=== PATIENT | female | born 1995 | race Two or more races ===

== ENCOUNTER 2024-10-12 09:28 | Inpatient (IN) | payer OTHER ==
[2024-10-12 10:01] VITALS: BMI 25.6
[2024-10-12] MEDS ORDERED: DICYCLOMINE HCL 10 MG CAPSULE PO PRN (12:15)
[2024-10-12] MEDS ORDERED: LOPERAMIDE HCL 2 MG CAPSULE PO PRN (12:15)
[2024-10-12] MEDS ORDERED: BISMUTH SUBSALICYLATE 262 MG/15 ML BTL PO PRN (12:15)
[2024-10-12] MEDS ORDERED: ONDANSETRON *ODT* 4 MG TABLET SL PRN (12:15)
[2024-10-12] MEDS ORDERED: IBUPROFEN 400 MG TABLET (FP) PO PRN (12:15)
[2024-10-12] MEDS ORDERED: MAG HYDROX/AL HYDROX/SIMETH 30 ML UNIT-DOSE CUP PO PRN (12:15)
[2024-10-12] MEDS ORDERED: guaiFENesin 600 MG TABLET.ER (FP) PO PRN (12:15)
[2024-10-12] MEDS ORDERED: IBUPROFEN 600 MG TABLET (FP) PO PRN (12:15)
[2024-10-12] MEDS ORDERED: MAGNESIUM HYDROX 2400MG/30ML ORAL SUSPENSION 30 ML CUP PO PRN (12:15)
[2024-10-12] MEDS ORDERED: ACETAMINOPHEN 325 MG TABLET (FP) PO PRN (12:15)
[2024-10-12] MEDS ORDERED: BENZOCAINE/MENTHOL (CHLORASEPTIC ) LOZENGE MM PRN (12:15)
[2024-10-12] MEDS ORDERED: NALOXONE (NARCAN) HCL 4 MG/0.1 ML SPRAY NS PRN (12:15)
[2024-10-12] MEDS ORDERED: POLYETHYLENE GLYCOL (HEALTHYLAX) 3350 17 GM PACKET PO PRN (12:15)
[2024-10-12] MEDS ORDERED: BENZONATATE 200 MG CAPSULE PO PRN (12:15)
[2024-10-12] MEDS: methaDONE HCL 10 MG TABLET (FOR DETOX USE ONLY) PO ONE (16:14)
[2024-10-12] MEDS: cloNIDine HCL 0.1 MG TABLET PO SCH (18:06)
[2024-10-12] MEDS: hydrOXYzine PAMOATE 25 MG CAPSULE (FP) PO PRN (18:07)
[2024-10-12] MEDS: NICOTINE POLACRILEX 2 MG GUM BUC PRN (18:08)
[2024-10-12] MEDS: MELATONIN 5 MG TABLETS PO SCH (22:46)
[2024-10-12] MEDS: THIAMINE 100 MG TABLET PO SCH (22:46)
[2024-10-12] MEDS: QUEtiapine FUMARATE 50 MG TABLET PO SCH (22:46)
[2024-10-12] MEDS: BUPRENORPHINE/NALOXONE 0.5 MG/0.125 MG FILM SL ONE (22:47)
[2024-10-12] MEDS: LITHIUM CARBONATE 300 MG CAPSULE PO SCH (22:47)
[2024-10-13] MEDS: SERTRALINE HCL 25 MG TABLET (FP) PO SCH (09:39)
[2024-10-13] MEDS: FOLIC ACID 1 MG TABLET (FP) PO SCH (09:39)
[2024-10-13] MEDS: PRENATAL VITAMINS W/ FOLIC ACID TABLET (FP) PO SCH (09:39)
[2024-10-13] MEDS: NICOTINE 21 MG/24 HOURS TOPICAL PATCH TD SCH (09:40)
[2024-10-13] MEDS: BUPRENORPHINE/NALOXONE 0.5 MG/0.125 MG FILM SL SCH (09:43)
[2024-10-13 11:13] LABS: HEMATOCRIT 36.3 % (32.4-45.2); MCH 31.1 pg (25.7-33.7); MCHC 33.1 g/dl (32.0-36.0); MEAN CELL VOLUME 93.8 fl (80-96); PLATELET COUNT 255 10^3/uL (134-434); RBC 3.87 M/mm3 (3.60-5.2); RDW 12.8 % (11.6-15.6); WHITE BLOOD COUNT 6.4 K/mm3 (4.0-10.0)
[2024-10-13 11:21] LABS: CHLORIDE 109 mmol/L (98-107); POTASSIUM 4.5 mmol/L (3.5-5.1); SODIUM 140 mmol/L (136-145)
[2024-10-13 11:32] LABS: ALBUMIN 3.2 g/dl (3.4-5.0); ANION GAP 5 mmol/L (4-13); CALCIUM 9.2 mg/dL (8.5-10.1); CO2 25 mmol/L (21-32); GLUCOSE,RANDOM 79 mg/dL (74-106)
[2024-10-13 11:33] LABS: BLOOD UREA NITROGEN 9.4 mg/dL (7-18)
[2024-10-13 11:35] LABS: CREATININE 0.6 mg/dL (0.55-1.3); SGPT/ALT 29 U/L (13-61)
[2024-10-13 11:36] LABS: SGOT/AST 29 U/L (15-37)
[2024-10-13 11:37] LABS: BILIRUBIN,TOTAL 0.3 mg/dL (0.2-1); TOT PROT 6.5 g/dl (6.4-8.2)
[2024-10-13 11:38] LABS: ALK PHOS 49 U/L (45-117)
[2024-10-13] MEDS ORDERED: methaDONE HCL 40 MG DISPERSABLE TABLET PO ONE (11:45)
[2024-10-13] MEDS: METHOCARBAMOL 500 MG TABLET PO PRN (21:55)
[2024-10-14] MEDS: methaDONE 40 MG, methaDONE 20 MG PO ONE (09:59)
[2024-10-14] MEDS ORDERED: methaDONE HCL 10 MG TABLET (FOR DETOX USE ONLY) PO ONE (10:00)
[2024-10-14] MEDS ORDERED: BUPRENORPHINE/NALOXONE 2 MG/0.5 MG FILM PACKET SL SCH (10:00)
[2024-10-15] MEDS: methaDONE 40 MG, methaDONE 30 MG PO ONE (09:38)
[2024-10-15] MEDS ORDERED: BUPRENORPHINE/NALOXONE 4 MG/1 MG FILM PACKET SL SCH (10:00)
[2024-10-15] MEDS: cloNIDine HCL 0.1 MG TABLET PO PRN (17:34)
[2024-10-16] MEDS: methaDONE HCL 40 MG DISPERSABLE TABLET PO ONE (09:21)
[2024-10-16] MEDS ORDERED: NALOXONE (NYS OPIOID OVERDOSE PROGRAM) 4 MG/0.1 ML SPRAY NS PRN (09:45)
[2024-10-16] MEDS ORDERED: BUPRENORPHINE/NALOXONE 8 MG/2 MG FILM PACKET SL SCH (10:00)
[2024-10-16] MEDS ORDERED: methaDONE HCL 10 MG TABLET (FOR DETOX USE ONLY) PO ONE (10:00)
[2024-10-17 06:22] VITALS: TEMP 97.7
[2024-10-17] MEDS ORDERED: BUPRENORPHINE/NALOXONE 8 MG/2 MG FILM PACKET SL SCH (10:00)
[2024-10-17] MEDS: methaDONE 80 MG, methaDONE 10 MG PO ONE (10:18)
[2024-10-17 11:14] VITALS: RESP 18
[2024-10-17 13:58] VITALS: BP 116/68; PULSE 89
== END 2024-10-17 14:25 | disposition other institution (70) | DRG 773 ==
LOC: YASAS 09:28 → Y6N 13:13
PROVIDERS: ADMIT Allergy & Immunology; ATTEND Surgery
PROC: HZ2ZZZZ Detoxification Services for Substance Abuse Treatment (ICD-10-PCS; principal; 2024-10-12)
DX: F11.23 Opioid dependence with withdrawal (principal); F10.230 Alcohol dependence with withdrawal, uncomplicated; F14.10 Cocaine abuse, uncomplicated; F17.210 Nicotine dependence, cigarettes, uncomplicated; F25.0 Schizoaffective disorder, bipolar type; F19.282 Other psychoactive substance dependence with psychoactive substance-induced sleep disorder; F19.24 Other psychoactive substance dependence with psychoactive substance-induced mood disorder; Z59.00 Homelessness unspecified
CPT/HCPCS: 36415; 80053; 80178; 80307; 85027; 86780; 93005; 93010

== ENCOUNTER 2024-10-17 14:22 | Inpatient (IN) | payer OTHER ==
[2024-10-17] MEDS ORDERED: IBUPROFEN 400 MG TABLET (FP) PO PRN (15:57)
[2024-10-17] MEDS ORDERED: NALOXONE HCL 0.4 MG/ML VIAL IVPUSH PRN (15:57)
[2024-10-17] MEDS ORDERED: guaiFENesin 600 MG TABLET.ER (FP) PO PRN (15:57)
[2024-10-17] MEDS ORDERED: BENZONATATE 200 MG CAPSULE PO PRN (15:57)
[2024-10-17] MEDS ORDERED: POLYETHYLENE GLYCOL (HEALTHYLAX) 3350 17 GM PACKET PO PRN (15:57)
[2024-10-17] MEDS ORDERED: NICOTINE POLACRILEX 2 MG LOZENGE BC PRN (15:57)
[2024-10-17] MEDS ORDERED: BENZOCAINE/MENTHOL (CHLORASEPTIC ) LOZENGE MM PRN (15:57)
[2024-10-17] MEDS ORDERED: NALOXONE (NARCAN) HCL 4 MG/0.1 ML SPRAY NS PRN (15:57)
[2024-10-17] MEDS ORDERED: LOPERAMIDE HCL 2 MG CAPSULE PO PRN (15:57)
[2024-10-17] MEDS ORDERED: MAGNESIUM HYDROX 2400MG/30ML ORAL SUSPENSION 30 ML CUP PO PRN (15:57)
[2024-10-17] MEDS ORDERED: METHOCARBAMOL 500 MG TABLET PO PRN (15:57)
[2024-10-17] MEDS: QUEtiapine FUMARATE 50 MG TABLET PO SCH (21:19)
[2024-10-17] MEDS: MELATONIN 5 MG TABLETS PO SCH (21:19)
[2024-10-17] MEDS: LITHIUM CARBONATE 300 MG CAPSULE PO SCH (21:19)
[2024-10-17] MEDS: THIAMINE 100 MG TABLET PO SCH (21:19)
[2024-10-17] MEDS: NICOTINE POLACRILEX 2 MG GUM BUC PRN (21:20)
[2024-10-18] MEDS: IBUPROFEN 600 MG TABLET (FP) PO PRN (06:12)
[2024-10-18] MEDS ORDERED: methaDONE HCL 10 MG TABLET PO SCH (09:15)
[2024-10-18] MEDS: NICOTINE 21 MG/24 HOURS TOPICAL PATCH TD SCH (09:51)
[2024-10-18] MEDS: PRENATAL VITAMINS W/ FOLIC ACID TABLET (FP) PO SCH (09:52)
[2024-10-18] MEDS: methaDONE 80 MG, methaDONE 10 MG PO SCH (09:54)
[2024-10-18] MEDS: SERTRALINE HCL 25 MG TABLET (FP) PO SCH (09:54)
[2024-10-18 13:28] LABS: HIV INTERPRETATION NEGATIVE (NEGATIVE)
[2024-10-18] MEDS: ONDANSETRON *ODT* 4 MG TABLET SL PRN (21:20)
[2024-10-18] MEDS: QUEtiapine FUMARATE 50 MG TABLET PO SCH (21:20)
[2024-10-18] MEDS: LITHIUM CARBONATE 300 MG CAPSULE PO SCH (21:20)
[2024-10-19] MEDS: MAG HYDROX/AL HYDROX/SIMETH 30 ML UNIT-DOSE CUP PO PRN (01:53)
[2024-10-26] MEDS: hydrOXYzine PAMOATE 25 MG CAPSULE (FP) PO PRN (20:24)
[2024-10-26] MEDS: ACETAMINOPHEN 325 MG TABLET (FP) PO PRN (20:24)
[2024-10-28 07:03] VITALS: RESP 16
[2024-10-29 06:51] VITALS: BP 128/60; PULSE 96; TEMP 98
== END 2024-10-29 17:10 | disposition left against medical advice (07) | DRG 770 ==
LOC: YASAS 14:22 → Y5N 14:23
PROVIDERS: ADMIT Psychiatry & Neurology Pain Medicine; ATTEND Psychiatry & Neurology Pain Medicine
PROC: HZ42ZZZ Group Counseling for Substance Abuse Treatment, Cognitive-Behavioral (ICD-10-PCS; principal; 2024-10-17)
DX: F11.20 Opioid dependence, uncomplicated (principal); F10.20 Alcohol dependence, uncomplicated; F14.20 Cocaine dependence, uncomplicated; F17.210 Nicotine dependence, cigarettes, uncomplicated; F19.282 Other psychoactive substance dependence with psychoactive substance-induced sleep disorder; F19.24 Other psychoactive substance dependence with psychoactive substance-induced mood disorder; U07.1 COVID-19; E72.20 Disorder of urea cycle metabolism, unspecified
CPT/HCPCS: 0241U-QW; 36415; 82140; 86803; 87389; Q0162

== ENCOUNTER 2024-12-26 10:53 | Inpatient (IN) | payer OTHER ==
[2024-12-26 11:14] VITALS: BMI 26.3
[2024-12-26] MEDS ORDERED: guaiFENesin 600 MG TABLET.ER (FP) PO PRN (11:32)
[2024-12-26] MEDS ORDERED: IBUPROFEN 600 MG TABLET (FP) PO PRN (11:32)
[2024-12-26] MEDS ORDERED: POLYETHYLENE GLYCOL (HEALTHYLAX) 3350 17 GM PACKET PO PRN (11:32)
[2024-12-26] MEDS ORDERED: MAGNESIUM HYDROX 2400MG/30ML ORAL SUSPENSION 30 ML CUP PO PRN (11:32)
[2024-12-26] MEDS ORDERED: MAG HYDROX/AL HYDROX/SIMETH 30 ML UNIT-DOSE CUP PO PRN (11:32)
[2024-12-26] MEDS ORDERED: LOPERAMIDE HCL 2 MG CAPSULE PO PRN (11:32)
[2024-12-26] MEDS ORDERED: ACETAMINOPHEN 325 MG TABLET (FP) PO PRN (11:32)
[2024-12-26] MEDS ORDERED: BENZOCAINE/MENTHOL (CHLORASEPTIC ) LOZENGE MM PRN (11:32)
[2024-12-26] MEDS ORDERED: hydrOXYzine PAMOATE 25 MG CAPSULE (FP) PO PRN (11:32)
[2024-12-26] MEDS ORDERED: IBUPROFEN 400 MG TABLET (FP) PO PRN (11:32)
[2024-12-26] MEDS ORDERED: BENZONATATE 200 MG CAPSULE PO PRN (11:32)
[2024-12-26] MEDS ORDERED: NALOXONE (NARCAN) HCL 4 MG/0.1 ML SPRAY NS PRN (11:32)
[2024-12-26] MEDS: LIDOCAINE PATCH REMOVAL MC SCH (21:14)
[2024-12-26] MEDS: THIAMINE 100 MG TABLET PO SCH (21:15)
[2024-12-26] MEDS: QUEtiapine FUMARATE 50 MG TABLET PO SCH (21:15)
[2024-12-26] MEDS: MELATONIN 5 MG TABLETS PO SCH (21:15)
[2024-12-27 06:54] VITALS: RESP 16
[2024-12-27 09:25] LABS: HEMATOCRIT 33.8 % (32.4-45.2); HEMOGLOBIN 11.4 GM/dL (10.7-15.3); MCH 30.9 pg (25.7-33.7); MCHC 33.6 g/dl (32.0-36.0); MEAN CELL VOLUME 91.9 fl (80-96); MEAN PLT VOLUME 8.4 fl (7.5-11.1); PLATELET COUNT 265 10^3/uL (134-434); RBC 3.67 M/mm3 (3.60-5.2); RDW 13.9 % (11.6-15.6)
[2024-12-27] MEDS: PRENATAL VITAMINS W/ FOLIC ACID TABLET (FP) PO SCH (09:27)
[2024-12-27] MEDS: LIDOCAINE 5% TOPICAL PATCH TP SCH (09:28)
[2024-12-27] MEDS: NICOTINE POLACRILEX 2 MG GUM BUC PRN (09:29)
[2024-12-27] MEDS ORDERED: NICOTINE 21 MG/24 HOURS TOPICAL PATCH TD SCH (10:00)
[2024-12-27 11:21] LABS: POTASSIUM 3.9 mmol/L (3.5-5.1)
[2024-12-27 11:31] LABS: ALBUMIN 3.3 g/dl (3.4-5.0); BILIRUBIN,TOTAL 0.2 mg/dL (0.2-1); CREATININE 0.5 mg/dL (0.55-1.3); TOT PROT 6.5 g/dl (6.4-8.2)
[2024-12-27 14:04] LABS: SYPHILIS W/ RPR CONF NON-REACTIVE (NONREACTIVE)
[2024-12-27] MEDS: LITHIUM CARBONATE 300 MG CAPSULE PO SCH (22:50)
[2024-12-28 07:06] VITALS: BP 102/64; PULSE 81
[2024-12-28 07:08] VITALS: TEMP 98.3
== END 2024-12-28 14:35 | disposition left against medical advice (07) | DRG 770 ==
LOC: YASAS 10:53 → Y3NR 12:04 → Y5N 19:13
PROVIDERS: ADMIT Psychiatry & Neurology Pain Medicine; ATTEND Psychiatry & Neurology Pain Medicine
PROC: HZ42ZZZ Group Counseling for Substance Abuse Treatment, Cognitive-Behavioral (ICD-10-PCS; principal; 2024-12-26)
DX: F11.20 Opioid dependence, uncomplicated (principal); F10.20 Alcohol dependence, uncomplicated; F14.20 Cocaine dependence, uncomplicated; F13.20 Sedative, hypnotic or anxiolytic dependence, uncomplicated; F17.210 Nicotine dependence, cigarettes, uncomplicated; F25.0 Schizoaffective disorder, bipolar type; F19.24 Other psychoactive substance dependence with psychoactive substance-induced mood disorder; F31.9 Bipolar disorder, unspecified; F41.9 Anxiety disorder, unspecified; F60.9 Personality disorder, unspecified; Z86.69 Personal history of other diseases of the nervous system and sense organs; Z59.00 Homelessness unspecified
CPT/HCPCS: 36415; 80053; 80178; 80305; 80307; 81025; 85027; 86780; 86803; 87811; 93005; 93010

== ENCOUNTER 2024-12-30 19:15 | Inpatient (IN) | payer OTHER ==
[2024-12-30 19:50] VITALS: BMI 24.5
[2024-12-30] MEDS ORDERED: MAGNESIUM HYDROX 2400MG/30ML ORAL SUSPENSION 30 ML CUP PO PRN (20:42)
[2024-12-30] MEDS ORDERED: POLYETHYLENE GLYCOL (HEALTHYLAX) 3350 17 GM PACKET PO PRN (20:42)
[2024-12-30] MEDS ORDERED: BENZONATATE 200 MG CAPSULE PO PRN (20:42)
[2024-12-30] MEDS ORDERED: IBUPROFEN 400 MG TABLET (FP) PO PRN (20:42)
[2024-12-30] MEDS ORDERED: MAG HYDROX/AL HYDROX/SIMETH 30 ML UNIT-DOSE CUP PO PRN (20:42)
[2024-12-30] MEDS ORDERED: IBUPROFEN 600 MG TABLET (FP) PO PRN (20:42)
[2024-12-30] MEDS ORDERED: BISMUTH SUBSALICYLATE 524 MG/30 ML PO PRN (20:42)
[2024-12-30] MEDS ORDERED: ONDANSETRON *ODT* 4 MG TABLET SL PRN (20:42)
[2024-12-30] MEDS ORDERED: ACETAMINOPHEN 325 MG TABLET (FP) PO PRN (20:42)
[2024-12-30] MEDS ORDERED: P-EPHED 60MG/TRIPROLIDI 2.5MG TABLET PO PRN (20:42)
[2024-12-30] MEDS ORDERED: LOPERAMIDE HCL 2 MG CAPSULE PO PRN (20:42)
[2024-12-30] MEDS ORDERED: BENZOCAINE/MENTHOL (CHLORASEPTIC ) LOZENGE MM PRN (20:42)
[2024-12-30] MEDS ORDERED: DICYCLOMINE HCL 10 MG CAPSULE PO PRN (20:42)
[2024-12-30] MEDS ORDERED: NICOTINE POLACRILEX 2 MG LOZENGE BC PRN (20:42)
[2024-12-30] MEDS ORDERED: guaiFENesin 600 MG TABLET.ER (FP) PO PRN (20:42)
[2024-12-30] MEDS ORDERED: NALOXONE (NARCAN) HCL 4 MG/0.1 ML SPRAY NS PRN (20:42)
[2024-12-31] MEDS ORDERED: diazePAM 5 MG TABLET ONE (10:45)
[2024-12-31] MEDS ORDERED: PRENATAL VITAMINS W/ FOLIC ACID TABLET (FP) PO ONE (10:45)
[2024-12-31] MEDS: PRENATAL VITAMINS W/ FOLIC ACID TABLET (FP) PO SCH (10:47)
[2024-12-31] MEDS: diazePAM 5 MG TABLET PO SCH (10:47)
[2024-12-31] MEDS: MELATONIN 5 MG TABLETS PO SCH (10:59)
[2024-12-31] MEDS: THIAMINE 100 MG TABLET PO SCH (10:59)
[2024-12-31] MEDS: diazePAM 5 MG TABLET PO ONE (10:59)
[2024-12-31] MEDS ORDERED: NICOTINE POLACRILEX 2 MG GUM ONE (11:12)
[2024-12-31] MEDS: NICOTINE POLACRILEX 2 MG GUM BUC PRN (11:13)
[2024-12-31] MEDS: LITHIUM CARBONATE 150 MG CAPSULE PO SCH (12:44)
[2024-12-31] MEDS: QUEtiapine FUMARATE 50 MG TABLET PO SCH (12:45)
[2024-12-31] MEDS: METHOCARBAMOL 500 MG TABLET PO PRN (18:00)
[2024-12-31] MEDS: LITHIUM CARBONATE 300 MG CAPSULE PO SCH (23:03)
[2025-01-01] MEDS: diazePAM 5 MG TABLET PO SCH (06:19)
[2025-01-01] MEDS: diazePAM 5 MG TABLET PO PRN (09:55)
[2025-01-01] MEDS ORDERED: NICOTINE 7 MG/24 HOURS TOPICAL PATCH TD SCH (14:30)
[2025-01-02] MEDS: diazePAM 5 MG TABLET PO SCH (06:07)
[2025-01-02 16:51] VITALS: RESP 18
[2025-01-02 22:12] VITALS: BP 115/71; PULSE 71; TEMP 98
[2025-01-03] MEDS ORDERED: diazePAM 5 MG TABLET PO ONE (06:00)
== END 2025-01-03 | disposition short-term general hospital (02) | DRG 773 ==
LOC: YASAS 19:15 → Y6N 12-31 10:38 → Y3N 01-01 22:31
PROVIDERS: ADMIT Neuromusculoskeletal Medicine & OMM; ATTEND Allergy & Immunology
PROC: HZ2ZZZZ Detoxification Services for Substance Abuse Treatment (ICD-10-PCS; principal; 2024-12-31)
DX: F10.230 Alcohol dependence with withdrawal, uncomplicated (principal); F13.230 Sedative, hypnotic or anxiolytic dependence with withdrawal, uncomplicated; F11.10 Opioid abuse, uncomplicated; F14.10 Cocaine abuse, uncomplicated; F12.10 Cannabis abuse, uncomplicated; F17.210 Nicotine dependence, cigarettes, uncomplicated; F25.9 Schizoaffective disorder, unspecified; F31.9 Bipolar disorder, unspecified; F41.9 Anxiety disorder, unspecified; R45.851 Suicidal ideations; Z86.69 Personal history of other diseases of the nervous system and sense organs
CPT/HCPCS: 80305; 81025

== ENCOUNTER 2025-02-02 04:37 | Emergency (ER) | payer OTHER ==
[2025-02-02 04:44] VITALS: BP 113/77; PULSE 86; RESP 18; TEMP 98; BMI 20.3
[2025-02-02] MEDS: NICOTINE 7 MG/24 HOURS TOPICAL PATCH TD SCH (05:47)
[2025-02-02] MEDS ORDERED: NICOTINE 7 MG/24 HOURS TOPICAL PATCH TD SCH (10:00)
== END 2025-02-02 06:44 | disposition home or self-care (01) ==
LOC: JER 04:37
DX: S40.022A Contusion of left upper arm, initial encounter (principal); Y04.2XXA Assault by strike against or bumped into by another person, initial encounter
CPT/HCPCS: 99283-25